=== PATIENT | female | born 1990 | race Caucasian/White ===

== ENCOUNTER → 2017-12-15 | Emergency (ER) | payer OTHER ==
[~2017-12-15] VITALS: Ht 154.9 cm; Wt 81.6 kg
== END | disposition home or self-care (01) ==
LOC: ER 19:08
DX: R10.84 Generalized abdominal pain (principal)

== ENCOUNTER 2018-03-31 22:02 | Outpatient (CLI) | payer OTHER | END 2018-04-01 14:54 | disposition home or self-care (01) | LOC: OBS/DEL 22:02 | DX: O26.893 Other specified pregnancy related conditions, third trimester (principal); R10.2 Pelvic and perineal pain; Z34.82 Encounter for supervision of other normal pregnancy, second trimester ==